=== PATIENT | female | born 1970 | race Caucasian/White ===

== ENCOUNTER 2024-03-01 06:24 | Observation (INO) ==
[~2024-03-01 06:24] MED LIST: Naloxone 0.4 mg VIAL 0.4 mg/ml 1 ml VIAL IV PRN; fentaNYL 100 mcg/2 ml 50 MCG/ML VIAL IV PRN
[2024-03-01 07:18] LABS: ABS Basophils 0.1 10^3/uL (0.0-0.1); ABS Eosinophils 0.1 10^3/uL (0.0-0.5); ABS Monocytes 0.4 10^3/uL (0.0-0.9); ABS Neutrophils 3.5 10^3/uL (1.5-7.6); Eosinophil % 1.2 %; Hematocrit 39.6 % (35-45); Lymphocyte % 42.9 %; Mean Corpuscular Hemoglobin 33.9 pg (27-33); Mean Corpuscular Hgb Conc 35.2 g/dL (31-36); Mean Corpuscular Volume 96.3 fL (80-97); Mean Platelet Volume 7.3 fL (7.5-11.2); Platelet Count 263 10^3/uL (150-450); Red Blood Count 4.11 10^6/uL (3.63-4.92); Red Cell Distribution Width 13.1 % (12-17)
[2024-03-01] MEDS ORDERED: Scopolamine 1 mg/72hr PATCH ONE (07:42)
[2024-03-01] MEDS: Scopolamine 1 mg/72hr PATCH TRANSDERM ONE (07:51)
[2024-03-01] MEDS ORDERED: Midazolam 5 mg/5 ml VIAL 1 mg/ml 5 ml VIAL (5 mg) ONE (07:51)
[2024-03-01] MEDS ORDERED: fentaNYL 100 mcg/2 ml 50 MCG/ML VIAL ONE ×2 (07:51→09:37)
[2024-03-01] MEDS ORDERED: Gelfoam Sponge SIZE 100 SPONGE ONE (07:52)
[2024-03-01] MEDS ORDERED: Heparin 2 UNITS/ML IVPREMIX 3,000 UNIT/1,500 ML BAG IV ONE (07:52)
[2024-03-01] MEDS ORDERED: Iohexol 350 (CONTRAST) 100 ML PAK IV ONE ×2 (07:52→09:30)
[2024-03-01] MEDS ORDERED: Lidocaine 1% VIAL 10 MG/ML 30 ML VIAL ONE (07:52)
[2024-03-01 08:20] LABS: Calcium 8.9 mg/dL (8.6-10.3); Creatinine, Serum 0.98 mg/dL (0.51-0.95); Potassium 4.3 mmol/L (3.5-5.0)
[2024-03-01 08:23] LABS: Activated Partial Thrombo Time 33.8 seconds (26.0-38.0); INR 0.88 (0.83-1.13)
[2024-03-01] MEDS ORDERED: Lidocaine 2% PF 5 ML VIAL ONE (09:15)
[2024-03-01] MEDS ORDERED: Midazolam 2 mg/2 ml VIAL 1 mg/ml 2 ml VIAL (2 mg) ONE ×2 (09:15→10:57)
[2024-03-01] MEDS ORDERED: Propofol 10 MG/ML 20 ML BTL ONE (09:15)
[2024-03-01] MEDS ORDERED: Ondansetron 4 mg VIAL 2 MG/ML 2 ml VIAL ONE ×2 (09:15→15:33)
[2024-03-01] MEDS ORDERED: fentaNYL 250 mcg/5 ml 50 MCG/ML 5 ml VIAL (250 MCG) ONE ×2 (09:15→10:57)
[2024-03-01] MEDS ORDERED: Dexamethasone IV 4 MG/ML VIAL 1 ml VIAL ONE (09:15)
[2024-03-01] MEDS ORDERED: Rocuronium 50 mg VIAL 10 mg/ml 5 ml VIAL (50 mg) ONE ×2 (09:15→11:38)
[2024-03-01 10:12] LABS: HCG Pregnancy 2.11 mIU/mL
[2024-03-01] MEDS ORDERED: INDIGOTINDISULFONATE SODIUM ONE (10:22)
[2024-03-01] MEDS ORDERED: Bupivacaine 0.5% SDV PF 30ML VIAL ONE (10:22)
[2024-03-01] MEDS: Lactated Ringers 1000 ml BAG 1,000 ML IV SCH (10:41)
[2024-03-01] MEDS: Buffered Lidocaine 1% SYRIN 1 ml INTRADERM ONE (10:41)
[2024-03-01] MEDS ORDERED: ceFOXitin 2 GM IVPREMIX 2 GM/50 ML BAG ONE (10:48)
[2024-03-01] MEDS ORDERED: Glycopyrrolate IV 0.2 MG/ML 1 ML VIAL ONE (11:51)
[2024-03-01] MEDS ORDERED: HYDROmorphone 0.5 MG/0.5 ML SYRINGE ONE (12:08)
[2024-03-01] MEDS ORDERED: Metoclopramide 5 MG/ML VIAL (10 mg) ONE (15:32)
[2024-03-01] MEDS: Ondansetron 4 mg VIAL 2 MG/ML 2 ml VIAL IV PRN (15:34)
[2024-03-01] MEDS: Metoclopramide 5 MG/ML VIAL (10 mg) IV PRN (15:41)
[2024-03-01] MEDS ORDERED: NS 0.45% 1000 ml BAG 1,000 ML IV SCH (18:00)
[2024-03-01 19:26] LABS: Rapid COVID-19 Molecular Undetected (Undetected)
[2024-03-01] MEDS ORDERED: HYDROcodone/ACETAMIN 5/325 mg TAB PO PRN (20:11)
[2024-03-01] MEDS: Midazolam 10 mg/10 ml VIAL 1 mg/ml 10 ml VIAL (10 mg) IV SLOW PU ONE (22:41)
[2024-03-02] MEDS: Ondansetron 4 mg VIAL 2 MG/ML 2 ml VIAL IV PRN (06:50)
[2024-03-02] MEDS: Scopolamine 1 mg/72hr PATCH ONE (10:13)
[2024-03-02] MEDS: Scopolamine 1 mg/72hr PATCH TRANSDERM SCH (10:14)
[2024-03-02] MEDS: Lactated Ringers 1000 ml BAG 1,000 ML IV SCH (12:23)
[2024-03-02 13:59] VITALS: BP 116/62
[2024-03-02] MEDS: Prochlorperazine 5 mg/ml 2 ml VIAL (10 mg) IV PRN (16:03)
== END 2024-03-02 18:30 | disposition home or self-care (01) ==
LOC: OR 06:24 → SSU 06:24
PROVIDERS: ADMIT Obstetrics & Gynecology; ATTEND Obstetrics & Gynecology
PROC: ANG.UFE (2024-03-01 08:15)